=== PATIENT | male | born 1980 | race African-American/Black ===

== ENCOUNTER 2019-12-07 17:35 | Emergency (ER) | payer OTHER ==
[~2019-12-07] VITALS: Ht 190.5 cm; Wt 122.5 kg
[2019-12-07 17:45] VITALS: BP 145/93
--- NOTE | 2019-12-07 17:53 | NUR ---
[facility] BED 7 PT CAME IN CHIEF COMPLAINT OF SORE THROAT 'SINCE YESTERDAY'. DENIED FEVER, CHILLS, LOSS OF TASTE OR SMELL. VS CHECKED. PT AFEBRILE. AWAITING TO BE SEEN BY
[2019-12-07] MEDS ORDERED: IBUPROFEN 600 MG TABLET ONE (18:00)
[2019-12-07] MEDS ORDERED: IBUPROFEN 600 MG TABLET PO ONE (18:00)
--- NOTE | 2019-12-07 18:07 | NUR ---
COVID AND STREP SWABS SENT TO LAB
--- NOTE | 2019-12-07 18:39 | NUR ---
Patient discharged to home in stable condition. Written and verbal after care instructions given. Patient verbalizes understanding of instruction.
== END 2019-12-07 18:40 | disposition home or self-care (01) ==
LOC: ER 17:45
DX: B34.9 Viral infection, unspecified (principal); Z20.828 Contact with and (suspected) exposure to other viral communicable diseases; J45.909 Unspecified asthma, uncomplicated; R03.0 Elevated blood-pressure reading, without diagnosis of hypertension
CPT/HCPCS: 71045; 87070; 87880; 99284; C9803; U0003; 86403-TC

== ENCOUNTER 2020-02-12 16:05 | Emergency (ER) | payer OTHER ==
[~2020-02-12] VITALS: Ht 190.5 cm; Wt 127.0 kg
[2020-02-12 16:23] VITALS: BP 150/89
--- NOTE | 2020-02-12 16:42 | NUR ---
covid 19 swab collected and sent to lab
--- NOTE | 2020-02-12 18:35 | NUR ---
Patient discharged to home in stable condition. Written and verbal after care instructions given. Patient verbalizes understanding of instruction.
== END 2020-02-12 18:35 | disposition home or self-care (01) ==
LOC: ER 16:09
DX: J01.90 Acute sinusitis, unspecified (principal); R05 Cough; Z20.828 Contact with and (suspected) exposure to other viral communicable diseases; J45.909 Unspecified asthma, uncomplicated; R03.0 Elevated blood-pressure reading, without diagnosis of hypertension
CPT/HCPCS: 71045; 87804; 99284; C9803; U0003

== ENCOUNTER 2021-01-09 21:03 | Emergency (ER) | payer SELFPAY ==
[~2021-01-09] VITALS: Ht 190.5 cm; Wt 131.5 kg
[2021-01-09 21:51] VITALS: BP 156/91
[2021-01-09] MEDS ORDERED: ALBU18HF2 INH (22:16)
[2021-01-09] MEDS ORDERED: METH4TAB3 PO (22:16)
== END 2021-01-09 22:27 | disposition home or self-care (01) ==
LOC: ER 21:14
DX: J98.01 Acute bronchospasm (principal); J06.9 Acute upper respiratory infection, unspecified; Z60.2 Problems related to living alone; Z79.899 Other long term (current) drug therapy